=== PATIENT | male | born 1990 | race Caucasian/White ===

== ENCOUNTER 2018-02-14 06:33 | Emergency (ER) ==
[~2018-02-14] VITALS: Ht 180.3 cm; Wt 91.0 kg
[2018-02-14 06:50] VITALS: BP 126/75; PULSE 65; RESP 18; TEMP 97.3; O2SAT 99
--- NOTE | 2018-02-14 07:29 | PD ---
HPI Chief Complaint: Skin Problem Time Seen by Provider: 07:07 Travel History International Travel<30 days: No Contact w/Intl Traveler<30days: No Traveled to known affect area: No History of Present Illness HPI Patient is a 27 year old male who comes in complaining of sunburn. He says that [place] sunscreen. He says this has been going on for the past 3 days. He says he just needs a percocet because he cannot sleep. He has tried Ibuprofen and Aloe with no relief. He denies any other medical complaints. [facility] Past Medical History Medical History: Denies Significant Hx Diminished Hearing: No Tetanus Vaccination: Unknown Influenza Vaccination: No Past Surgical History Surgical History: No Previous Surgery Social History Alcohol Use: No Tobacco Use: Yes Substance Use: No Allergies-Medications (Allergen,Severity, Reaction): Coded Allergies: No Known Allergies (Unverified , 02/14/18) Review of Systems General / Constitutional: No: Fever, Chills HENT: No: Headaches, Lightheadedness Cardiovascular: No: Chest Pain or Discomfort Respiratory: No: Shortness of Breath Gastrointestinal: No: Nausea, Vomiting Skin: Positive Other (sunburn) Neurologic: No: Weakness, Dizziness Physical Exam Narrative GENERAL: Awake and alert, in no acute distress. SKIN: Erythema over most of the trunk. No blistering or pealing of skin. HEAD: Atraumatic. Normocephalic. EYES: Pupils equal and round. No scleral icterus. ENT: Mucous membranes pink and moist. CARDIOVASCULAR: Regular rate and rhythm. No murmur appreciated. RESPIRATORY: No accessory muscle use. Clear to auscultation. Breath sounds equal bilaterally. MUSCULOSKELETAL: No obvious deformities. No clubbing. No cyanosis. No edema. NEUROLOGICAL: Awake and alert. No obvious cranial nerve deficits. Motor grossly within normal limits. Normal speech. Data Data Last Documented VS Vital Signs Date Time Temp Pulse Resp B/P (MAP) Pulse Ox O2 Delivery O2 Flow Rate FiO2 02/14/18 06:50 97.3 65 18 126/75 (92) 99 Orders Orders Acetamin-Hydrocod 325-5 Mg ([place] 5-325 (02/14/18 07:30) MDM Medical Decision Making Medical Screen Exam Complete: Yes Emergency Medical Condition: Yes Differential Diagnosis sunburn vs cellulitis vs encounter for pain medicine Narrative Course Patient is a 27 year old male who comes in complaining of sunburn. Exam shows erythema over most of the trunk. He is requesting percocet. He is given pain medicine here. Advised continue Ibuprofen and aloe. Advised to look for signs of infection and return as needed. Advised to wear sunscreen and use sun protection. Diagnosis Primary Impression: Sunburn Patient Instructions: General Instructions, Sunburn (ED) Additional Instructions: Use sun protection when in sun. Apply aloe for pain relief and take ibuprofen as needed for pain. Return to the ED as needed for any worsening symptoms. Disposition: 01 DISCHARGE HOME Condition: Stable Alysa Lopez MD February 14, 2018 07:29
[2018-02-14] MEDS ORDERED: ACETAMINOPHEN/HYDROcodone 325 MG/5 MG TAB PO ONE (07:30)
== END 2018-02-14 07:40 | disposition home or self-care (01) ==
LOC: NEPC 06:33
DX: L55.9 Sunburn, unspecified (principal)
CPT/HCPCS: 99283